=== PATIENT | female | born 1975 | race Caucasian/White ===

== ENCOUNTER 2016-12-08 09:47 | Emergency (ER) | payer OTHER ==
[~2016-12-08] VITALS: Ht 160 cm; Wt 70.9 kg
[2016-12-08] MEDS ORDERED: ZOFRAN ODT4 MG PO (11:00)
[2016-12-08 11:20] VITALS: BP 122/88
== END 2016-12-08 11:21 | disposition home or self-care (01) ==
LOC: EME 09:47
DX: G43.909 Migraine, unspecified, not intractable, without status migrainosus (principal); Z87.891 Personal history of nicotine dependence
CPT/HCPCS: 99281; 99284; J1100; J1885